=== PATIENT | female | born 1950 | race Caucasian/White ===

== ENCOUNTER 2016-10-26 13:39 | Outpatient (CLI) | payer MEDICARE, BC | END 2016-10-26 13:40 | disposition home or self-care (01) | DX: R01.1 Cardiac murmur, unspecified (principal); I51.7 Cardiomegaly ==

== ENCOUNTER 2018-07-02 11:37 | Outpatient (CLI) | payer MEDICARE, BC ==
--- NOTE | 2018-07-02 13:09 | CT Report ---
Reason: FLANK PAIN Procedure Date: 07/02/2018 Accession Number: [id number] / [id number] Procedure: CT - Abdomen/Pelvis W/O CPT Code: FULL RESULT: EXAM: CT ABDOMEN AND PELVIS EXAM DATE: 07/02/2018 12:01 PM. CLINICAL HISTORY: FLANK PAIN. COMPARISONS: None. TECHNIQUE: Routine helical CT imaging was performed through the abdomen and pelvis. IV contrast: None. Enteric contrast: No. Reconstructions: Coronal and sagittal. In accordance with CT protocol optimization, one or more of the following dose reduction techniques were utilized for this exam: automated exposure control, adjustment of mA and/or KV based on patient size, or use of iterative reconstructive technique. FINDINGS: Lung Bases: Unremarkable. Liver: Normal. No masses. Gallbladder/Bile Ducts: Unremarkable. Spleen: Normal. Pancreas: Normal. Adrenal Glands: Normal. Kidneys: A 2 mm nonobstructing right renal calculus versus vascular calcification is identified. There is no hydronephrosis on either side. There is no perinephric fat stranding. Peritoneal Cavity/Bowel: Mild inflammatory stranding is seen in the cecal region. There is subjectively increased fatty infiltration of the large bowel wall, nonspecific finding which can be seen with chronic inflammatory bowel disease. There is sigmoid descending colonic diverticulosis without evidence of diverticulitis. No free fluid, free air or adenopathy. No masses identified. The patient is likely status post appendectomy. Pelvic Organs: Normal. The bladder and visualized pelvic organs are within normal limits. Vasculature: No aneurysms or other significant abnormality. Bones: No aggressive osseous lesions. Other: None. IMPRESSION: Mild pericecal inflammation. No evidence of obstructing renal calculi. RADIA The above findings pericecal inflammation were discussed with Munira Cole by Dr. Myles West at 13:07 hrs on 07/02/18.
== END 2018-07-02 11:38 | disposition home or self-care (01) ==
LOC: DI 11:37
PROVIDERS: ATTEND Internal Medicine
DX: K52.9 Noninfective gastroenteritis and colitis, unspecified (principal); K57.30 Diverticulosis of large intestine without perforation or abscess without bleeding; R10.9 Unspecified abdominal pain
CPT/HCPCS: 74176

== ENCOUNTER 2018-07-18 17:17 | Outpatient (CLI) | payer MEDICARE, BC | END 2018-07-18 17:18 | disposition critical access hospital (66) | LOC: EMS 17:17 | PROVIDERS: ATTEND Surgery | DX: M25.512 Pain in left shoulder (principal); W18.39XA Other fall on same level, initial encounter; Y92.512 Supermarket, store or market as the place of occurrence of the external cause | CPT/HCPCS: A0425; A0427 ==

== ENCOUNTER 2018-07-18 17:44 | Emergency (ER) | payer MEDICARE, BC ==
--- NOTE | 2018-07-18 18:40 | ED Physician Documentation ---
PD HPI UPPER EXT INJURY - Stated complaint Stated Complaint: L SHOULDER PAIN - Chief complaint Chief Complaint: Trauma Ext - History obtained from History obtained from: Patient, EMS - History of Present Illness Location: Left, Shoulder Type of injury: Fall (She was going into a grocery store and fell injuring her left arm. Pain is severe. No other injuries. No head or neck injury.) Review of Systems Constitutional: reports: Reviewed and negative Throat: reports: Reviewed and negative Cardiac: reports: Reviewed and negative Respiratory: reports: Reviewed and negative PD PAST MEDICAL HISTORY - Past Medical History Cardiovascular: Hypertension Psych: Anxiety Musculoskeletal: Osteoarthritis - Past Surgical History Past Surgical History: Yes - Present Medications Home Medications: Ambulatory Orders Medication Instructions Recorded Confirmed HYDROcod/ACETAM 5/325 [Vicodin 09/20/13 09/20/13 5/325] HYDROcod/ACETAM 5/325 [Vicodin 1 - 2 ea PO Q6H PRN #15 tablet 09/20/13 5/325] RX: Aspirin 81 09/20/13 09/20/13 Ondansetron Odt [Zofran] 4 mg TL Q6H PRN #10 tablet 07/18/18 Oxycodone HCl/Acetaminophen 1 - 2 each PO Q6H PRN #20 tablet 07/18/18 [Percocet 5-325 mg Tablet] - Allergies Allergies/Adverse Reactions: Allergies Allergy/AdvReac Type Severity Reaction Status Date / Time codeine AdvReac Intermediate Emesis Verified 07/18/18 17:55 - Social History Does the pt smoke?: No Smoking Status: Never smoker Does the pt drink ETOH?: No Does the pt have substance abuse?: No - Immunizations Immunizations are current?: Yes PD ED PE NORMAL - Vitals Vital signs reviewed: Yes - General General: Alert and oriented X 3, No acute distress - Neck Neck: Supple, no meningeal sign, No bony TTP - Extremities Extremities: Other (Quite tender to the left upper humerus and unable to range it at all without overt deformity. She has normal sensation over the deltoid and in the hand but I am unable to get her to flex or extend at the wrist at all due to pain. Radial pulse is normal.) - Neuro Neuro: Alert and oriented X 3, Normal speech - Psych Psych: Normal mood, Normal affect Results - Vitals Vitals: Vital Signs - 24 hr 12/07/18/18 07/18/18 18:00 19:40 20:49 Temperature 36.2 C L Heart Rate 62 76 71 Respiratory 15 20 12 Rate Blood Pressure 137/72 H 135/80 H 102/60 O2 Saturation 99 100 94 07/18/18 07/18/18 07/18/18 21:03 21:36 22:05 Temperature Heart Rate 70 60 60 Respiratory 18 20 16 Rate Blood Pressure 98/58 L 88/51 L 101/62 O2 Saturation 95 97 97 Oxygen O2 Source Room air - Rads (name of study) Ct LUE Radiology: EMP read contemporaneously (Comminuted Neer Part 3 frx) PD MEDICAL DECISION MAKING - ED course ED course: 68 yo woman with complicated L humerus frx, did CT p XR to aid in followup. Departure - Departure Disposition: 01 Home, Self Care Clinical Impression: Humerus fracture Condition: Good Record reviewed to determine appropriate education?: Yes Instructions: Humerus Fx Follow-Up: [facility] [Provider Group] - Within 1 week Prescriptions: Ondansetron Odt [Zofran] 4 mg TL Q6H PRN #10 tablet PRN Reason: Nausea / Vomiting Oxycodone HCl/Acetaminophen [Percocet 5-325 mg Tablet] 1 - 2 each PO Q6H PRN #20 tablet PRN Reason: pain Comments: Keep the sling on. Followup with orthopedics next week, call Sunday. Do not drink or drive while taking narcotic pain medication. Note that many narcotic pain relievers also contain Tylenol/acetaminophen. Please ensure that your total dose of acetaminophen from all sources does not exceed 3 g (3000 mg) per day. You may get constipated while on this medication. Take a stool softener such as Colace twice a day while you are on it. Also add an [id number] laxative such as senna or MiraLAX on any day that you do not have a bowel movement. If you received a narcotic pain medication or sedative while in the emergency department, do not drive for the next 24 hours. Discharge Date/Time: 07/18/18 22:15
[2018-07-18] MEDS: MORPHINE 2 MG/ML CARPUJECT IVP STA (18:44)
[2018-07-18] MEDS: ONDANSETRON 4 MG/2 ML VIAL IVP STA ×2 (18:44→20:54)
[2018-07-18] MEDS: HYDROmorphone 1 MG/ML CARPUJECT IVP STA ×2 (19:07→19:31)
[2018-07-18] MEDS: KETOROLAC 30 MG/ML VIAL IVP STA (19:31)
--- NOTE | 2018-07-18 19:32 | XRAY Report ---
Reason: arm inj Procedure Date: 07/18/2018 Accession Number: [id number] / [id number] Procedure: XR - Humerus LT CPT Code: FULL RESULT: EXAM: LEFT HUMERUS RADIOGRAPHY EXAM DATE: 07/18/2018 07:22 PM. CLINICAL HISTORY: Arm injury. Left arm caught in door earlier, upper left arm pain. COMPARISON: None. TECHNIQUE: 2 views. FINDINGS: Acute comminuted impacted left humeral head and neck fracture with the lateral head portion of the fracture severely displaced in the lateral and posterior directions. No definite dislocation seen. A CT of the left shoulder without contrast could further evaluate. IMPRESSION: Acute comminuted impacted left humeral head and neck fracture with the lateral head portion of the fracture severely displaced in the lateral and posterior directions. No definite dislocation seen. A CT of the left shoulder without contrast could further evaluate. RADIA
--- NOTE | 2018-07-18 20:56 | CT Report ---
Reason: eval humeral frx Procedure Date: 07/18/2018 Accession Number: [id number] / [id number] Procedure: CT - Upper Extremity Left W/O CPT Code: FULL RESULT: EXAM: LEFT ELBOW CT WITHOUT CONTRAST EXAM DATE: 07/18/2018 08:46 PM. CLINICAL HISTORY: Humerus fracture. CT requested for further characterization. COMPARISON: HUMERUS LT 07/18/2018 7:07 PM. TECHNIQUE: Thin-section axial images were acquired of the elbow without contrast. Post-processing: Coronal and sagittal reformats. Other: None. In accordance with CT protocol optimization, one or more of the following dose reduction techniques were utilized for this exam: automated exposure control, adjustment of mA and/or KV based on patient size, or use of iterative reconstructive technique. FINDINGS: Bones: Moderately comminuted Neer Part 3 fracture of the proximal humerus. Surgical neck is impacted 1.8 cm. Greater tuberosity fracture distracted 2 cm and displaced dorsally with external rotation. The medial humeral head fragment is relatively adducted to the shaft. Joints: Humeral head still articulates with the glenoid. Mild acromioclavicular degenerative joint disease. Musculature: Normal. No fatty atrophy. Other: None. IMPRESSION: 1. Comminuted impacted Neer Part 3 fracture proximal humerus. RADIA
[2018-07-18] MEDS: HYDROcod/ACET 5/325 Prepack 4 PO STA (21:19)
[2018-07-18] MEDS: ONDANSETRON ODT 4 MG Prepack 2 TL STA (21:20)
[2018-07-18 22:08] VITALS: BP 101/62
== END 2018-07-18 22:15 | disposition home or self-care (01) ==
LOC: EDUNIT# → ED 17:44
DX: S42.295A Other nondisplaced fracture of upper end of left humerus, initial encounter for closed fracture (principal); W23.0XXA Caught, crushed, jammed, or pinched between moving objects, initial encounter; W18.30XA Fall on same level, unspecified, initial encounter; Y93.01 Activity, walking, marching and hiking; Y92.512 Supermarket, store or market as the place of occurrence of the external cause; I10 Essential (primary) hypertension; Z79.82 Long term (current) use of aspirin
CPT/HCPCS: 73060; 73200; 96374; 96375; 96376; 99283; 99284; J1170

== ENCOUNTER 2018-11-04 21:23 | Outpatient (CLI) | payer MEDICARE, BC ==
--- NOTE | 2018-11-05 11:12 | Ultrasound Report ---
Reason: ACUTE EMBOLISM AND THOMBOS UNSP DEEP VN UNSP LOWER Procedure Date: 11/04/2018 Accession Number: [id number] / [id number] Procedure: US - Duplex Ext Veins Bilateral CPT Code: FULL RESULT: EXAM: BILATERAL LOWER EXTREMITY VENOUS ULTRASOUND EXAM DATE: 11/04/2018 11:49 PM. CLINICAL HISTORY: Acute embolism and thrombosis, unspecified deep vein, unspecified lower extremity. COMPARISON: None. TECHNIQUE: Real-time sonographic vascular imaging was performed by the pasting machine offbearer through the lower extremities utilizing both color-flow and Doppler spectral analysis. Multiple residential sales representative static images were saved for review. FINDINGS: Visualization of the posterior tibial and peroneal veins is suboptimal in both lower extremities. Right: Common Femoral Vein (CFV): Normal. CFV-GSV Junction: Normal. Profunda Femoral Vein (PFV): Normal. Femoral Vein (FV) Prox: Normal. Femoral Vein (FV) Mid: Normal. Femoral Vein (FV) Dist: Normal. Popliteal Vein: Normal. Posterior Tibial Veins: Not well seen but visualized portions are negative. Peroneal Veins: Not well seen. Left: Common Femoral Vein (CFV): Normal. CFV-GSV Junction: Normal. Profunda Femoral Vein (PFV): Normal. Femoral Vein (FV) Prox: Normal. Femoral Vein (FV) Mid: Normal. Femoral Vein (FV) Dist: Normal. Popliteal Vein: Normal. Posterior Tibial Veins: Not well seen but visualized portions are negative. Peroneal Veins: Not well seen but visualized portions are negative. Other: None. IMPRESSION: Limited visualizations of calf veins with no DVT demonstrated. No progression to above the knee DVT. RADIA
== END 2018-11-04 21:24 | disposition home or self-care (01) ==
LOC: DI 21:23
PROVIDERS: ATTEND Internal Medicine
DX: I82.409 Acute embolism and thrombosis of unspecified deep veins of unspecified lower extremity (principal)
CPT/HCPCS: 93970

== ENCOUNTER 2022-05-11 11:24 | Outpatient (CLI) | payer MEDICARE, BC ==
[2022-05-11 14:54] LABS: BASOPHILS % (AUTO) 0.6 %; EOSINOPHILS # (AUTO) 0.2 10^3/uL (0.0-0.7); EOSINOPHILS % (AUTO) 2.3 %; HCT - HEMATOCRIT 37.8 % (37.0-47.0); HGB - HEMOGLOBIN 12.3 g/dL (12.0-16.0); LYMPHOCYTES # (AUTO) 1.6 10^3/uL (1.5-3.5); LYMPHOCYTES % (AUTO) 23.7 %; MEAN CORPUSCULAR HEMOGLOBIN 29.5 pg (27.0-31.0); MEAN CORPUSCULAR HGB CONC 32.5 g/dL (32.0-36.0); MEAN CORPUSCULAR VOLUME 90.6 fL (81.0-99.0); MEAN PLATELET VOLUME 9.6 fL (7.9-10.8); MONOCYTES # (AUTO) 0.4 10^3/uL (0.0-1.0); MONOCYTES % (AUTO) 6.2 %; NEUTROPHILS # (AUTO) 4.5 10^3/uL (1.5-6.6); PLT - PLATELET COUNT 372 10^3/uL (130-450); RED BLOOD COUNT 4.17 10^6/uL (4.20-5.40); WHITE BLOOD COUNT 6.6 x10^3/uL (4.8-10.8)
[2022-05-11 15:27] LABS: ALBUMIN 4.2 g/dL (3.2-5.5); ALBUMIN/GLOBULIN RATIO 1.2 (1.0-2.2); ALKALINE PHOSPHATASE 59 IU/L (42-121); ALT ALANINE AMINOTRANSFERASE 12 IU/L (10-60); AST ASPARTATE AMINOTRANSFERASE 18 IU/L (10-42); BILIRUBIN,TOTAL 0.5 mg/dL (0.2-1.0); BUN - BLOOD UREA NITROGEN 20 mg/dL (6-20); CALCIUM 9.4 mg/dL (8.5-10.3); CARBON DIOXIDE - CO2 28 mmol/L (21-32); CHLORIDE 103 mmol/L (101-111); CHOLESTEROL 250 mg/dL; CREATININE 0.6 mg/dL (0.4-1.0); GFR - MDRD 98 (>89); GLUCOSE 95 mg/dL (70-100); HDL CHOLESTEROL 83 mg/dL; LDL CHOLESTEROL,CALCULATED 155 mg/dL; LDL/HDL RATIO 1.9 (<4.4); POTASSIUM 3.6 mmol/L (3.5-5.0); SODIUM 141 mmol/L (135-145); TOTAL PROTEIN 7.6 g/dL (6.7-8.2); TRIGLYCERIDES 58 mg/dL; VLDL CHOLESTEROL 12 mg/dL
== END 2022-05-11 11:25 | disposition home or self-care (01) ==
LOC: LAB.S 11:24
PROVIDERS: ATTEND Internal Medicine
DX: Z00.00 Encounter for general adult medical examination without abnormal findings (principal); F41.9 Anxiety disorder, unspecified; L30.9 Dermatitis, unspecified; R60.9 Edema, unspecified; Z86.718 Personal history of other venous thrombosis and embolism; E78.5 Hyperlipidemia, unspecified; I10 Essential (primary) hypertension; M81.0 Age-related osteoporosis without current pathological fracture; M25.562 Pain in left knee; Z79.899 Other long term (current) drug therapy
CPT/HCPCS: 36415; 80053; 80061; 82306; 83721; 83880; 84443; 85025; 85379

== ENCOUNTER 2022-05-11 17:20 | Outpatient (CLI) | payer MEDICARE, BC ==
--- NOTE | 2022-05-11 19:20 | Ultrasound Report ---
PROCEDURE: Duplex Ext Veins Bilateral INDICATIONS: PATRICIO KEVIN TECHNIQUE: Real-time imaging, as well as color and pulse Doppler interrogation, were performed of the deep veins of both legs from the inguinal ligament to the popliteal fossa. COMPARISON: None. FINDINGS: There is deep venous thrombosis in the left mid posterior tibial vein as well as a small sh ort segment of the left gastrocnemius vein. No deep venous thrombosis on the right. IMPRESSION: Short segment deep venous arthrosis in the left posterior tibial vein and left gastrocnemius vein. Reviewed by: Martin Mendes MD on 05/11/2022 7:19 PM PDT Approved by: Martin Mendes MD on 05/11/2022 7:19 PM PDT Station ID: [id number]
== END 2022-05-11 17:21 | disposition home or self-care (01) ==
LOC: DI 17:20
PROVIDERS: ATTEND Internal Medicine
DX: I82.442 Acute embolism and thrombosis of left tibial vein (principal); I82.462 Acute embolism and thrombosis of left calf muscular vein
CPT/HCPCS: 93970

== ENCOUNTER 2022-09-08 21:45 | Outpatient (CLI) | payer MEDICARE, BC ==
--- NOTE | 2022-09-08 23:26 | Ultrasound Report ---
PROCEDURE: Duplex Ext Veins Left INDICATIONS: DEEP VENOUS THROMBOSIS TECHNIQUE: Real-time imaging, as well as color and pulse Doppler interrogation, were performed of the lower extr emity deep veins from the inguinal ligament to the popliteal fossa. COMPARISON: None. FINDINGS: The deep veins are normally compressible, and free of intraluminal thrombus. Color and pu lse Doppler demonstrate normal phasic intraluminal flow. There is normal augmentation response to di stal compression maneuver. IMPRESSION: 1. No evidence of deep venous thrombosis in the left lower extremity. Reviewed by: Lisandro Shah MD on 09/08/2022 11:36 PM PST Approved by: Lisandro Shah MD on 09/08/2022 11:36 PM [facility] Station ID: [id number]
== END 2022-09-08 21:46 | disposition home or self-care (01) ==
LOC: DI 21:45
PROVIDERS: ATTEND Internal Medicine
DX: I82.409 Acute embolism and thrombosis of unspecified deep veins of unspecified lower extremity (principal)

== ENCOUNTER 2024-03-06 07:00 | Outpatient (CLI) | payer MEDICARE, BC ==
--- NOTE | 2024-03-06 16:30 | XRAY Report ---
PROCEDURE: Abdomen 2 V INDICATIONS: CONSTIPATION/ABDOMINAL PAIN TECHNIQUE: 2 views of the abdomen were acquired. COMPARISON: None. FINDINGS: Surgical changes and devices: None. Bowel: No pneumoperitoneum. The bowel gas pattern is normal. Stool load within normal limits. Soft tissues: No masses; visualized solid organ contours appear normal in size. No suspicious abdom inal calcifications. Bones: No suspicious bony abnormalities. Convex right scoliosis. IMPRESSION: No acute abdominal pathology. Normal stool load. Reviewed by: Juan Diego Munson MD on 03/06/2024 4:29 PM PDT Approved by: Juan Diego Munson MD on 03/06/2024 4:29 PM PDT Station ID: [id number]
== END 2024-03-06 23:59 | disposition home or self-care (01) ==
LOC: DI.S 07:00
PROVIDERS: ATTEND Registered Nurse
DX: R10.9 Unspecified abdominal pain (principal)

== ENCOUNTER 2024-03-28 10:02 | Outpatient (CLI) | payer MEDICARE, BC ==
[2024-04-01 03:07] LABS: ADENOVIRUS F 40/41 Not Detected (Not Detected); ASTROVIRUS Not Detected (Not Detected); C DIFFICILE TOXIN A/B Not Detected (Not Detected); CAMPYLOBACTER Not Detected (Not Detected); CRYPTOSPORIDIUM Not Detected (Not Detected); CYCLOSPORA CAYETANENSIS Not Detected (Not Detected); ENTAMOEBA HISTOLYTICA Not Detected (Not Detected); ENTEROAGGREGATIVE E COLI Not Detected (Not Detected); ENTEROPATHOGENIC E COLI Detected (Not Detected); ENTEROTOXIGENIC E COLI Not Detected (Not Detected); GIARDIA LAMBLIA Not Detected (Not Detected); NOROVIRUS GI/GII Not Detected (Not Detected); PLESIOMONAS SHIGELLOIDES Not Detected (Not Detected); ROTAVIRUS A Not Detected (Not Detected); SALMONELLA Not Detected (Not Detected); SAPOVIRUS Not Detected (Not Detected); SHIGA-TOXIN-PRODUCING E COLI Not Detected (Not Detected); SHIGELLA/ENTEROINVASIVE E COLI Not Detected (Not Detected); VIBRIO Not Detected (Not Detected); VIBRIO CHOLERAE Not Detected (Not Detected); YERSINIA ENTEROCOLITICA Not Detected (Not Detected)
== END 2024-03-28 10:03 | disposition home or self-care (01) ==
LOC: LAB.S 10:02
PROVIDERS: ATTEND Nurse Practitioner Acute Care
DX: R19.7 Diarrhea, unspecified (principal); R93.89 Abnormal findings on diagnostic imaging of other specified body structures
CPT/HCPCS: 83993; 87329; 87493; 87507